=== PATIENT | male | born 1965 | race African-American/Black ===

== ENCOUNTER 2023-03-13 12:51 | Emergency (ER) | payer MEDICAID ==
[~2023-03-13] VITALS: Ht 180.3 cm; Wt 81.8 kg
[2023-03-13 13:07] VITALS: TEMP 99.1
[2023-03-13 14:14] LABS: BASOPHILS % (AUTO) 0.4 % (0.0-2.0); EOSINOPHILS % (AUTO) 0.8 % (1.0-6.0); HEMATOCRIT 44.8 % (41-53); HEMOGLOBIN 14.4 g/dL (13.5-17.5); LYMPHOCYTES # (AUTO) 2.3 K/uL (1.0-4.8); MEAN CORPUSCULAR HGB CONC 32.2 G/dL (31.0-37.0); MEAN CORPUSCULAR VOLUME 87 fL (80-100); MONOCYTES # (AUTO) 0.6 K/uL (0.1-1.0); MONOCYTES % (AUTO) 9.2 % (2.0-9.0); NEUTROPHILS # (AUTO) 3.9 K/uL (1.8-7.7); NEUTROPHILS % (AUTO) 56.6 % (40.0-70.0); PLATELET COUNT (AUTO) 211 K/uL (150-450); RED BLOOD CELL COUNT(AUTO) 5.15 MIL/uL (4.50-5.90); RED CELL DISTRIBUTION WIDTH 14.8 % (11.5-14.5); WHITE BLOOD COUNT (AUTO) 6.9 K/uL (4.5-11.0)
[2023-03-13 14:26] LABS: CALCIUM, TOTAL 8.9 mg/dL (8.8-10.5); CARBON DIOXIDE 22 mmol/L (22-29); CHLORIDE 105 mmol/L (98-107); GLOMERULAR FILTR. RATE CALC > 60 mL/min (>60); GLUCOSE,RANDOM 133 mg/dL (70-110); UREA NITROGEN, BLOOD 21 mg/dL (7-18)
[2023-03-13 14:34] LABS: ALANINE AMINOTRANSFERASE 63 U/L (12-78); ALBUMIN 3.4 g/dL (3.4-5.0); ALKALINE PHOSPHATASE 84 U/L (46-116); ASPARTATE AMINOTRANSFERASE 118 U/L (15-37); BILIRUBIN,TOTAL 0.3 mg/dL (0.1-1.0); LIPASE 33 U/L (16-77); TOTAL PROTEIN, SERUM 7.3 g/dL (6.4-8.2)
[2023-03-13 14:40] LABS: ANION GAP 6 mmol/L (8-16); POTASSIUM 4.2 mmol/L (3.5-5.1); SODIUM SERUM 133 mmol/L (136-145)
[2023-03-13 14:48] LABS: COVID AG,FIA SOURCE NASAL SWAB
[2023-03-13 14:49] LABS: TROPONIN I-HIGH SENSITIVITY 27 ng/L (<76)
[2023-03-13 14:54] LABS: APPEARANCE,URINE CLEAR (CLEAR); BILIRUBIN,URINE NEGATIVE (NEGATIVE); COLOR,URINE LIGHT YELLOW (YELLOW); GLUCOSE, URINE (UA) NEGATIVE (NEGATIVE); KETONES,URINE NEGATIVE (NEGATIVE); LEUKOCYTE ESTERASE ,URINE LARGE (NEGATIVE); NITRATE,URINE NEGATIVE (NEGATIVE); OCCULT BLOOD,URINE NEGATIVE (NEGATIVE); PH,URINE 6.5 (5.0-8.0); PROTEIN,URINE TRACE mg/dL (NEGATIVE); SPECIFIC GRAVITIY, URINE 1.023 (1.003-1.030); UROBILINOGEN,URINE <=1.0 mg/dL (<=1.0)
[2023-03-13 15:32] LABS: RBC,URINE 0-2 /HPF (0-2); WBC,URINE 26-50 /HPF (0-5)
[2023-03-13 15:33] LABS: BACTERIA,URINE Rare /HPF (None Seen)
[2023-03-13 15:39] LABS: SARS-COV2 (COVID) ANTIGEN,FIA Negative (Negative)
[2023-03-13] MEDS ORDERED: CEPHALEXIN MONOHYDRATE 500 MG CAPSULE PO ONE (16:15)
[2023-03-13] MEDS ORDERED: KETOROLAC TROMETHAMINE 60 MG/2 ML VIAL IM ONE (16:15)
[2023-03-13] MEDS ORDERED: ONDANSETRON HCL 4 MG TABLET PO ONE (16:15)
[2023-03-13] MEDS ORDERED: ACETAMINOPHEN/CODEINE 300-30 MG TABLET PO ONE (16:15)
[2023-03-13] MEDS ORDERED: IBUP-1554 PO (17:03)
[2023-03-13] MEDS ORDERED: CEPH-558 PO (17:03)
[2023-03-13] MEDS ORDERED: ONDA-104 PO (17:03)
[2023-03-13] MEDS ORDERED: ACET-2080 PO (17:03)
[2023-03-13 17:12] VITALS: BP 135/74; PULSE 88; RESP 20
== END 2023-03-13 17:13 | disposition home or self-care (01) ==
LOC: EMS 13:03
DX: N39.0 Urinary tract infection, site not specified (principal); M25.512 Pain in left shoulder; M25.511 Pain in right shoulder; Z20.822 Contact with and (suspected) exposure to COVID-19
CPT/HCPCS: 99284; 87426; 80053; 81001; 83690; 84484; 85025; 36415; 87086; 87186; 93005; 96372; J1885; Q0162

== ENCOUNTER 2024-07-11 11:33 | Emergency (ER) | payer SELFPAY ==
[~2024-07-11] VITALS: Ht 167.6 cm; Wt 69.0 kg
[~2024-07-11 11:33] MED LIST: ACET-2080 PO; CEPH-558 PO; IBUP-1554 PO; ONDA-104 PO
[2024-07-11 11:54] VITALS: TEMP 98.7
[2024-07-11 12:15] VITALS: BP 136/71; PULSE 85; RESP 17; O2SAT 99
[2024-07-11] MEDS: ACETAMINOPHEN 500 MG TABLET PO ONE (12:38)
[2024-07-11] MEDS: PERTUSS(ACELL),DIPH,TET/PF 0.5 ML SYRINGE [ADULT] IM. ONE (12:43)
[2024-07-11] MEDS: KETOROLAC TROMETHAMINE 30 MG/ML VIAL IM ONE (12:43)
[2024-07-11] MEDS: LIDOCAINE 1% 10 ML VIAL ID ONE (14:07)
== END 2024-07-11 14:40 | disposition home or self-care (01) ==
LOC: EMS 11:33
DX: S01.512A Laceration without foreign body of oral cavity, initial encounter (principal); R68.84 Jaw pain; M54.2 Cervicalgia; R51.9 Headache, unspecified; Y04.8XXA Assault by other bodily force, initial encounter; Y93.89 Activity, other specified; Y92.89 Other specified places as the place of occurrence of the external cause; Y99.8 Other external cause status
CPT/HCPCS: 99285; 70450; 70486; 72125; 90715; 90471; 12013; 96372; J1885; J3490